=== PATIENT | male | born 1980 | race Caucasian/White ===

== ENCOUNTER → 2024-09-19 12:06 | Outpatient (BNVA) | payer OTHER, SELFPAY | PROVIDERS: PCP Family Medicine; Visit Provider Family Medicine | DX: Z00.00 Encounter for general adult medical examination without abnormal findings (principal); R06.02 Shortness of breath | CPT/HCPCS: 71046; 80053; 80061; 84443; 85025 ==

== ENCOUNTER 2024-09-23 15:57 | Outpatient (CLI) | payer OTHER, SELFPAY ==
--- NOTE | 2024-09-23 16:00 | MR_ITS ---
WS: [id number] MRI RIGHT SHOULDER NONCONTRAST TECHNIQUE: Sagittal T2, coronal T1, T2 and proton density imaging. Axial gradient PDE imaging. CLINICAL INFORMATION: M75.101 - Unspecified rotator cuff tear or rupture of rig... COMPARISON: None. FINDINGS: Mild degenerative arthritis AC joint. Mild downsloping of the acromion. Subacromial space is well preserved. Normal bone marrow signal in the humeral head. No acute fractures. Tendinopathy supraspinatus with a tiny intrasubstance tear. Tiny insertional tear. Normal infraspinatus. Normal teres minor. Normal subscapularis. Biceps tendon appears intact within the bicipital groove. Normal coracoid. Intra-articular biceps tendon appears intact. Normal bone marrow signal in the glenoid. No other acute findings. MR/MR shoulder RT wo con* [id number] IMPRESSION: 1. Mild degenerative arthritis AC joint with mild narrowing of the subacromial space. 2. Tendinopathy supraspinatus with a tiny insertional tear. Tiny intrasubstanc e tears in the supraspinatus deep to the AC joint. 3. Rotator cuff is otherwise normal. 4. Normal biceps tendon in the bicipital groove. 5. Normal bone marrow signal in the humerus and glenoid. 6. No other acute findings.
== END 2024-09-23 15:58 | disposition home or self-care (01) ==
LOC: RAD 15:59
PROVIDERS: PCP Family Medicine; Visit Provider Family Medicine
DX: M75.81 Other shoulder lesions, right shoulder (principal); M19.011 Primary osteoarthritis, right shoulder
CPT/HCPCS: 73221

== ENCOUNTER 2024-09-26 05:00 | Outpatient (RCR) | payer OTHER, SELFPAY | END 2024-10-26 23:59 | disposition home or self-care (01) | LOC: TPT 05:00 | PROVIDERS: Visit Provider Family Medicine | DX: M75.100 Unspecified rotator cuff tear or rupture of unspecified shoulder, not specified as traumatic (principal) | CPT/HCPCS: 97110; 97161 ==

== ENCOUNTER → 2025-04-17 13:34 | Outpatient (BNVA) | payer SELFPAY | PROVIDERS: PCP Family Medicine; Visit Provider Family Medicine | DX: L98.9 Disorder of the skin and subcutaneous tissue, unspecified (principal) | CPT/HCPCS: 88304 ==